=== PATIENT | male | born 1975 | race Caucasian/White ===

== ENCOUNTER 2016-06-06 21:13 | Emergency (ER) | payer OTHER ==
[~2016-06-06] VITALS: Ht 193 cm; Wt 167.6 kg
[2016-06-06] MEDS ORDERED: METFORMIN500 MG PO (21:45)
[2016-06-06] MEDS ORDERED: NOVOLOG FL100 UNIT/M SC (21:46)
[2016-06-06] MEDS ORDERED: PERCOCET 5/325M1 TAB PO (23:00)
[2016-06-06 23:30] VITALS: BP 136/90
== END 2016-06-06 23:30 | disposition home or self-care (01) | DRG 563 ==
LOC: ED 21:13
PROC: 2W3AXYZ Immobilization of Right Upper Arm using Other Device (ICD-10-PCS; principal; 2016-06-06)
DX: S43.101A Unspecified dislocation of right acromioclavicular joint, initial encounter (principal); S40.011A Contusion of right shoulder, initial encounter; V86.59XA Driver of other special all-terrain or other off-road motor vehicle injured in nontraffic accident, initial encounter; Y93.I9 Activity, other involving external motion; Y92.007 Garden or yard of unspecified non-institutional (private) residence as the place of occurrence of the external cause